=== PATIENT | male | born 1960 | race Caucasian/White ===

== ENCOUNTER 2017-04-07 11:44 | Emergency (ER) | payer BC ==
[2017-04-07 12:18] LABS: CHLORIDE,CL 106 mEq/L (98-106); SODIUM,NA 144 mEq/L (136-145)
[2017-04-07] MEDS ORDERED: Aspirin 81 MG Tab.Chew PO ONE (12:58)
[2017-04-07] MEDS ORDERED: atorvaSTATin 20 MG Tab PO ONE (13:07)
--- NOTE | 2017-04-07 13:19 | EDM.PDOC ---
ED HPI GENERAL MEDICAL PROBLEM - General Chief Complaint: Cardiovascular Problem Stated Complaint: CHEST PAIN Time Seen by Provider: 04/07/17 12:20 Source of Information: Reports: Patient, Family History Limitations: Reports: No Limitations - History of Present Illness INITIAL COMMENTS - FREE TEXT/NARRATIVE: Patient states he was working in his office his am and noted sharp chest pain around 1030 am-he states pain was sharp and located in the left nipple region radiating intohis left arm He states spontaneous resolution of the pain after about 3-5 mins and denies nausea, vomiting or diaphoresis. He indicates was frightening to him and he felt he needed to go to ER for evaluation. He drove to [place] approximately 40 miles and presented to the ER for evaluation with . He affirms HTN, Tobacco Use, Dyslipidemia in which he does not tolerate statin therapy,(does not like the way it makes him feel), Obesity. He denies pain or discomfort at this time. Onset: Today, Sudden Onset Date: 04/07/17 Onset Time: 10:00 Duration: Hour(s):, Resolved Prior to Arrival Location: Reports: Chest Quality: Reports: Sharp, Stabbing Severity: Moderate Improves with: Reports: Rest (Spontaneous) Worsens with: Reports: None Associated Symptoms: Reports: Weakness. Denies: Cough, cough w sputum, Diaphoresis, Fever/Chills, Headaches, Loss of Appetite, Malaise, Nausea/Vomiting , Shortness of Breath, Syncope - Related Data Allergies Allergy/AdvReac Type Severity Reaction Status Date / Time tramadol Allergy Lightheaded Verified 04/07/17 11:56 ness Home Meds: Home Meds Hydrocodone/Acetaminophen [[place] 5-325] 1 tab PO Q4H PRN 04/07/17 [History] Levothyroxine Sodium [Synthroid] 200 mcg PO ACBREAKFAST 04/07/17 [History] Metoprolol Succinate [Toprol XL] 100 mg PO BID 04/07/17 [History] amLODIPine [Norvasc] 10 mg PO DAILY 04/07/17 [History] Past Medical History HEENT History: Reports: None Cardiovascular History: Reports: Hypertension, Other (See Below) (Dyslipidemia does not tolerate statin-(feels weird)) Respiratory History: Reports: None Gastrointestinal History: Reports: GERD Genitourinary History: Reports: BPH, Prostate Disorder, Renal Calculus Endocrine/Metabolic History: Reports: Hypothyroidism, Obesity/BMI 30+ Hematologic History: Reports: None - Past Surgical History HEENT Surgical History: Reports: Adenoidectomy, Tonsillectomy GI Surgical History: Reports: Colonoscopy Male Surgical History: Reports: Renal Calculus, Other (See Below) (Prostate cystoscopy) Endocrine Surgical History: Reports: Thyroidectomy Neurological Surgical History: Reports: None Musculoskeletal Surgical History: Reports: None Oncologic Surgical History: Reports: None Dermatological Surgical History: Reports: None Social & Family History - Family History Family Medical History: Noncontributory HEENT: Reports: None Cardiac: Reports: Angina, High Cholesterol, Hypertension Respiratory: Reports: None GI: Reports: GERD - Tobacco Use Tobacco Use Within Last Twelve Months: Snuff/Dip - Tobacco Core Measures Smokeless Tobacco Use History: Chewing Tobacco - Caffeine Use Caffeine Use: Reports: Coffee (2 mugs daily) - Living Situation & Occupation Living situation: Reports: , with Spouse Occupation: Employed ED ROS GENERAL - Review of Systems Review Of Systems: See Below Constitutional: Reports: Weakness, Fatigue HEENT: Reports: No Symptoms Respiratory: Reports: No Symptoms Cardiovascular: Reports: Chest Pain, Blood Pressure Problem, Lightheadedness Endocrine: Reports: Fatigue GI/Abdominal: Reports: No Symptoms, Nausea : Reports: Other (Renal Calculi) Musculoskeletal: Reports: No Symptoms Skin: Reports: No Symptoms Neurological: Reports: No Symptoms Psychiatric: Reports: No Symptoms, Anxiety Hematologic/Lymphatic: Reports: No Symptoms Immunologic: Reports: No Symptoms ED EXAM, GENERAL - Physical Exam Exam: See Below Exam Limited By: No Limitations General Appearance: Alert, WD/WN, Anxious Eye Exam: Bilateral Eye: EOMI, Normal Fundi, Normal Inspection, PERRL Ear Exam: Bilateral Ear: Auricle Normal, Canal Normal Nose: Normal Inspection, Normal Mucosa, No Blood Throat/Mouth: Normal Inspection, Normal Lips, Normal Teeth, Normal Gums, Normal Oropharynx, Normal Voice, No Airway Compromise Head: Atraumatic, Normocephalic Neck: Normal Inspection, Supple, Non-Tender, Full Range of Motion. No: Carotid Bruit Respiratory/Chest: No Respiratory Distress, Lungs Clear, Normal Breath Sounds, No Accessory Muscle Use, Chest Non-Tender Cardiovascular: Normal Peripheral Pulses, Regular Rate, Rhythm, No Edema, No Gallop, No JVD, No Murmur, No Rub Peripheral Pulses: 2+: Carotid (L), Carotid (R), Brachial (L), Brachial (R), Radial (L), Radial (R) GI/Abdominal: Non-Tender (Male) Exam: Deferred Rectal (Males) Exam: Deferred Back Exam: Normal Inspection, Full Range of Motion Extremities: Normal Inspection, Normal Range of Motion, Non-Tender, No Pedal Edema, Normal Capillary Refill. No: Mitra's Sign Neurological: Alert, Oriented, CN II-XII Intact, Normal Cognition, Normal Gait, Normal Reflexes, No Motor/Sensory Deficits Psychiatric: Normal Affect, Normal Mood, Anxious Skin Exam: Warm, Dry, Intact, Normal Color, No Rash Lymphatic: No Adenopathy EKG INTERPRETATION EKG Date: 04/07/17 Rhythm: NSR (Prolonged QT) Course - Vital Signs Last Recorded V/S: Last Vital Signs Temp 36.8 C 04/07/17 12:13 Pulse 78 04/07/17 12:13 Resp 18 04/07/17 12:13 BP 182/98 H 04/07/17 12:13 Pulse Ox - Orders/Labs/Meds Orders: Active Orders 24 hr Category Date Time Status CXR [Chest 2V] [CR] Stat Exams 04/07/17 11:50 Taken HEPATIC FUNCTION PANEL,HFP [CHEM] Stat Lab 04/07/17 13:12 Ordered LIPID PANEL [CHEM] Stat Lab 04/07/17 13:10 Ordered EKG 12 Lead [EK] Routine Ther 04/07/17 11:49 Ordered Labs: Laboratory Tests 04/07/17 04/07/17 04/07/17 Range/Units 11:58 12:00 12:00 WBC 6.8 (5.0-10.0) 10^3/uL RBC 5.04 (4.50-6.00) 10^6/uL Hgb 15.2 (14.0-18.0) g/dL Hct 42.9 (40.0-54.0) % MCV 85.1 (82.0-94.0) fL MCH 30.2 (27.0-32.0) pg MCHC 35.4 (33.0-38.0) g/dL RDW Coeff of Elisabeth 14.1 (11.0-15.0) % Plt Count 187 (150-400) 10^3/uL Neut % (Auto) 59.4 (35-85) % Lymph % (Auto) 28.9 (10-55) % [place] % (Auto) 8.3 (0-16) % Eos % (Auto) 2.8 (0-5) % Baso % (Auto) 0.6 (0-3) % Neut # (Auto) 4.01 (1.80-7.00) 10^3/uL Lymph # (Auto) 1.95 (1.00-4.80) 10^3/uL [place] # (Auto) 0.56 (0.00-0.80) 10^3/uL Eos # (Auto) 0.19 (0.00-0.45) 10^3/uL Baso # (Auto) 0.04 10^3/uL PT 11.0 (9.7-12.3) SEC INR 1.02 (0.92-1.18) APTT 24.6 (24.5-30.9) SEC D-Dimer, Quantitative (0.00-0.50) Sodium 144 (136-145) mEq/L Potassium 3.6 (3.5-5.0) mEq/L Chloride 106 (98-106) mEq/L Carbon Dioxide 30 (21-32) mmol/L BUN 18 (7-18) mg/dL Creatinine 1.1 (0.7-1.3) mg/dL Est Cr Clr Drug Dosing TNP Estimated GFR (MDRD) > 60 (>=60) mL/min Glucose 111 H (75-99) mg/dL Hemoglobin A1c (4.8-6.2) % Calcium 9.1 (8.4-10.1) mg/dL Lactate Dehydrogenase 215 H (100-190) U/L Creatine Kinase 198 (35-232) U/L Troponin I 0.105 H (0.00-0.06) ng/mL TSH, Ultra Sensitive (0.36-5.60) uIU/mL 04/07/17 04/07/17 04/07/17 Range/Units 12:00 12:00 12:18 WBC (5.0-10.0) 10^3/uL RBC (4.50-6.00) 10^6/uL Hgb (14.0-18.0) g/dL Hct (40.0-54.0) % MCV (82.0-94.0) fL MCH (27.0-32.0) pg MCHC (33.0-38.0) g/dL RDW Coeff of Elisabeth (11.0-15.0) % Plt Count (150-400) 10^3/uL Neut % (Auto) (35-85) % Lymph % (Auto) (10-55) % [place] % (Auto) (0-16) % Eos % (Auto) (0-5) % Baso % (Auto) (0-3) % Neut # (Auto) (1.80-7.00) 10^3/uL Lymph # (Auto) (1.00-4.80) 10^3/uL [place] # (Auto) (0.00-0.80) 10^3/uL Eos # (Auto) (0.00-0.45) 10^3/uL Baso # (Auto) 10^3/uL PT (9.7-12.3) SEC INR (0.92-1.18) APTT (24.5-30.9) SEC D-Dimer, Quantitative < 0.19 (0.00-0.50) Sodium (136-145) mEq/L Potassium (3.5-5.0) mEq/L Chloride (98-106) mEq/L Carbon Dioxide (21-32) mmol/L BUN (7-18) mg/dL Creatinine (0.7-1.3) mg/dL Est Cr Clr Drug Dosing Estimated GFR (MDRD) (>=60) mL/min Glucose (75-99) mg/dL Hemoglobin A1c 5.4 (4.8-6.2) % Calcium (8.4-10.1) mg/dL Lactate Dehydrogenase (100-190) U/L Creatine Kinase (35-232) U/L Troponin I (0.00-0.06) ng/mL TSH, Ultra Sensitive 0.09 L (0.36-5.60) uIU/mL Meds: Medications Discontinued Medications Generic Name Dose Route Start Last Admin Trade Name Freq PRN Reason Stop Dose Admin Aspirin 324 mg 04/07/17 12:58 Aspirin PO 04/07/17 12:59 ONETIME ONE Atorvastatin Calcium 40 mg 04/07/17 13:07 Lipitor PO 04/07/17 13:08 ONETIME ONE Departure - Departure Time of Disposition: 13:33 Disposition: DC/Tfer to Acute Hospital 02 Reason for Transfer *Q: Primary PCI Indicated Condition: Good Clinical Impression: Acute myocardial infarction, Chest pain Instructions: Heart Attack, [id number] - Problem List & Annotations (1) Acute myocardial infarction SNOMED Code(s): 70322816 Code(s): I21.3 - ST ELEVATION (STEMI) MYOCARDIAL INFARCTION OF [facility] SITE Status: Acute Current Visit: Yes Qualifiers: Myocardial infarction ST status: non-ST elevation myocardial infarction Qualified Code(s): I21.4 - Non-ST elevation (NSTEMI) myocardial infarction (2) Chest pain SNOMED Code(s): 54555475 Code(s): R07.9 - CHEST PAIN, UNSPECIFIED Status: Acute Current Visit: Yes Qualifiers: Chest pain type: chest pain due to myocardial ischemia - Problem List Review Problem List Initiated/Reviewed/Updated: Yes - My Orders Last 24 Hours: My Active Orders 04/07/17 11:49 EKG 12 Lead [EK] Routine 04/07/17 11:50 CXR [Chest 2V] [CR] Stat 04/07/17 13:10 LIPID PANEL [CHEM] Stat 04/07/17 13:12 HEPATIC FUNCTION PANEL,HFP [CHEM] Stat - Assessment/Plan Last 24 Hours: My Active Orders 04/07/17 11:49 EKG 12 Lead [EK] Routine 04/07/17 11:50 CXR [Chest 2V] [CR] Stat 04/07/17 13:10 LIPID PANEL [CHEM] Stat 04/07/17 13:12 HEPATIC FUNCTION PANEL,HFP [CHEM] Stat Assessment:: Chest Pain AMI with elevated Troponin Risks and Benefits discussed with pt and family. Risks of transfer worsening of condition, cardiac . Benefits of transfer: Specialized care with cardiac care and intervention. Risks of non transfer no specialized care interventions at local facility, risk continues with , cardiac , and worsening of condition. [place] of nontransfer;Staying in familiar environment close to home. Patient and family verbalize understanding and are in agreement with plan and transfer. Plan: Transfer to Dr. Andersen/Luz at [facility]. All information with patient. Heparin drip initated with bolus. ASA Lipitor 40mg po.
[2017-04-07] MEDS ORDERED: Heparin Sodium 10,000 Units/1 ML MDV IV ONE (13:20)
[2017-04-07] MEDS ORDERED: Heparin Sodium/D5W 25,000 UNITS/500 ML BAG IV SCH (13:30)
[2017-04-07] MEDS ORDERED: Nitroglycerin 0.4 MG Tab.SL SL ONE (13:32)
[2017-04-07 13:34] VITALS: BP 160/91
== END 2017-04-07 13:40 ==
LOC: MERGE 11:44 → CC.ED 11:44
DX: I21.3 ST elevation (STEMI) myocardial infarction of unspecified site (principal); I10 Essential (primary) hypertension; E78.4 Other hyperlipidemia; K21.9 Gastro-esophageal reflux disease without esophagitis; E03.9 Hypothyroidism, unspecified; Z88.5 Allergy status to narcotic agent; Z79.899 Other long term (current) drug therapy; E66.9 Obesity, unspecified; Z90.89 Acquired absence of other organs; Z68.32 Body mass index [BMI] 32.0-32.9, adult
CPT/HCPCS: 36415; 71020; 80048; 80061; 80076; 81001; 82550; 83036; 83615; 84443; 84484; 85025; 85379; 85610; 85730; 96374; 96376; 99285; A9270; J1644; 93005

== ENCOUNTER → 2017-06-13 | Day surgery (SDC) | payer BC ==
[~2017-06-13] MED LIST: Propofol 200 MG/20 ML SDV IV ONE; Sodium Chloride 0.9% 500 ML IV SCH
[2017-06-13 13:18] VITALS: BP 122/72
--- NOTE | 2017-06-13 14:55 | OR ---
DATE OF OPERATION: 06/13/2017 PREOPERATIVE DIAGNOSIS: FAMILY HISTORY OF COLON CANCER. POSTOPERATIVE DIAGNOSIS: FAMILY HISTORY OF COLON CANCER. SURGEON: Merlin Echols MD PROCEDURE: FULL LENGTH COLONOSCOPY WITH POLYP REMOVAL X1. ANESTHESIA: [employer] DEVELOPMENT MANAGER due to severe anxiety. COMPLICATIONS: None. SPECIMEN: Hyperplastic polyp, splenic flexure. FINDINGS: 1. Full-length colonoscopy. 2. Minimal diverticulosis. 3. Hyperplastic polyp, splenic flexure. RECOMMENDATIONS: Followup colonoscopy in 5 years. INDICATIONS: The patient has a family history of colon cancer. He is due for a 5-year followup scope. PROCEDURE: THE PATIENT WAS PREPPED AND DRAPED, PLACED IN LEFT LATERAL DECUBITUS POSITION. A LUBRICATED OLYMPUS COLONOSCOPE WAS INSERTED AND EASILY ADVANCED TO THE CECUM. DIRECT VISUALIZATION OF THE ILEOCECAL VALVE WAS ACCOMPLISHED. BOWEL PREP WAS FINE. UPON WITHDRAWAL, THE CECUM, ASCENDING, AND TRANSVERSE COLON WERE BENIGN. THE PATIENT DID HAVE 1 SMALL HYPERPLASTIC POLYP, NEAR THE SPLENIC FLEXURE IN THE TRANSVERSE COLON SIDE AND WAS REMOVED IN ITS ENTIRETY WITH FORCEPS. RESOLUTION OF BLEEDING WAS SPONTANEOUS. THE DESCENDING COLON WAS UNREMARKABLE. SIGMOID COLON HAD MINIMAL DIVERTICULAR DISEASE. NO SIGNS OF ANY POLYPS, MASS, ULCERATION, OR BLEEDING SITES, NO VASCULAR ABNORMALITIES OR SIGNS OF COLITIS. THE RECTAL VAULT WAS UNREMARKABLE. RETROFLEXION OF SCOPE WITHIN THE RECTUM SHOWED NO ANAL LESIONS. AIR WAS THEN SUCTIONED. SCOPE WAS REMOVED WITHOUT COMPLICATION. KERRY/JEET /[id number]
== END ==
LOC: CC.SDS 11:08
PROVIDERS: ATTEND Family Medicine
DX: Z12.11 Encounter for screening for malignant neoplasm of colon (principal); D12.3 Benign neoplasm of transverse colon; K57.30 Diverticulosis of large intestine without perforation or abscess without bleeding; F41.9 Anxiety disorder, unspecified; N40.0 Benign prostatic hyperplasia without lower urinary tract symptoms; I10 Essential (primary) hypertension; E78.5 Hyperlipidemia, unspecified; E87.6 Hypokalemia; E03.9 Hypothyroidism, unspecified; E55.9 Vitamin D deficiency, unspecified; Z80.0 Family history of malignant neoplasm of digestive organs; Z88.8 Allergy status to other drugs, medicaments and biological substances; Z91.09 Other allergy status, other than to drugs and biological substances; Z79.899 Other long term (current) drug therapy; Z90.49 Acquired absence of other specified parts of digestive tract; Z98.52 Vasectomy status; Z72.0 Tobacco use
CPT/HCPCS: 45380; J2704; J7040

== ENCOUNTER 2017-09-13 15:55 | Emergency (ER) | payer BC ==
[2017-09-13] MEDS: Lidocaine 1% 20 ML MDV INJECT ONE (16:12)
[2017-09-13] MEDS: Bacitracin/Neomycin/Polymyxin B Oint 0.9 GM U/D Packet TOP ONE (16:28)
[2017-09-13] MEDS: Diphtheria,Pertussis(Acell),Tetanus Vaccine 0.5 ML Syringe IM ONE (16:28)
[2017-09-13 16:42] VITALS: BP 170/110
--- NOTE | 2017-09-13 16:47 | EDM.PDOC ---
ED HPI GENERAL MEDICAL PROBLEM - General Chief Complaint: Laceration Stated Complaint: laceration Time Seen by Provider: 09/13/17 16:00 Source of Information: Reports: Patient History Limitations: Reports: No Limitations - History of Present Illness INITIAL COMMENTS - FREE TEXT/NARRATIVE: Enrique is a 56 year old male who presents to the ED with complaints of a laceration to his left middle knuckle. He reports he was working on his ice auger and tried to grab it as it slipped, cutting his hand on the blade. Denies any numbness or tingling. He is able to move his finger without difficulty. Cap refill < 2 seconds. Bleeding is controlled with pressure. Denies any other injuries or concerns. Onset: Today, Sudden Onset Date: 09/13/17 Onset Time: 15:30 Location: Reports: Upper Extremity, Left Left Hand Pain Score (Numeric/FACES): 2 - Related Data Allergies Allergy/AdvReac Type Severity Reaction Status Date / Time adhesive tape Allergy Rash Verified 09/13/17 16:06 tramadol Allergy Lightheaded Verified 09/13/17 16:06 ness Home Meds: Home Meds Levothyroxine Sodium [Synthroid] 200 mcg PO ACBREAKFAST 04/07/17 [History] Metoprolol Succinate [Toprol XL] 100 mg PO BID 04/07/17 [History] amLODIPine [Norvasc] 10 mg PO DAILY 04/07/17 [History] ALPRAZolam [ALPRAZolam ODT] 1 tab PO TID 06/09/17 [History] Cyclobenzaprine HCl [Cyclobenzaprine HCl] 1 tab PO TID PRN 06/09/17 [History] Fish Oil/[place]-3 Fatty Acids [Fish Oil 1,000 MG] 1 cap PO DAILY 06/09/17 [ History] Lisinopril 1 tab PO BID 06/09/17 [History] Magnesium 1 tab PO DAILY 06/09/17 [History] Potassium Chloride 3 tab PO BID 06/09/17 [History] Red Yeast Rice 1 tab PO BID 06/09/17 [History] Triamterene/Hydrochlorothiazid [Triamterene-HCTZ 37.5-25 MG] 1 cap PO DAILY [History] Vitamin B Complex 1 cap PO DAILY 06/09/17 [History] hydrALAZINE [Apresoline] 1 tab PO BID 06/09/17 [History] Past Medical History HEENT History: Reports: None Cardiovascular History: Reports: Hypertension, Other (See Below) (Dyslipidemia does not tolerate statin-(feels weird)) Respiratory History: Reports: None Gastrointestinal History: Reports: GERD Genitourinary History: Reports: BPH, Prostate Disorder, Renal Calculus Endocrine/Metabolic History: Reports: Hypothyroidism, Obesity/BMI 30+ Hematologic History: Reports: None - Past Surgical History Male Surgical History: Reports: Other (See Below), Renal Calculus Social & Family History - Family History Family Medical History: Noncontributory HEENT: Reports: None Cardiac: Reports: Angina, High Cholesterol, Hypertension Respiratory: Reports: None GI: Reports: GERD - Caffeine Use Caffeine Use: Reports: Coffee (2 mugs daily) - Living Situation & Occupation Living situation: Reports: , with Spouse Occupation: Employed ED ROS GENERAL - Review of Systems Review Of Systems: ROS reveals no pertinent complaints other than HPI. ED EXAM, SKIN/RASH Exam: See Below Exam Limited By: No Limitations General Appearance: Alert, WD/WN, No Apparent Distress Head: Atraumatic, Normocephalic Neck: Normal Inspection, Supple, Non-Tender, Full Range of Motion Respiratory/Chest: No Respiratory Distress, Lungs Clear, Normal Breath Sounds, No Accessory Muscle Use, Chest Non-Tender Cardiovascular: Normal Peripheral Pulses, Regular Rate, Rhythm, No Edema, No Gallop, No JVD, No Murmur, No Rub Peripheral Pulses: 2+: Radial (L) Extremities: Normal Inspection, Normal Range of Motion, Non-Tender, No Pedal Edema, Normal Capillary Refill Skin: Other (laceration to left 3rd knuckle, 2.5 cm in length, some subcutaneous involvement) Location, Skin: Upper Extremity, Left Associated features: Tenderness, Swelling. No: Warmth ED SKIN PROCEDURES - Laceration/Wound Repair Left Anterior Proximal Other Lac/Wound length In cm: 2.5 Appearance: Subcutaneous, Clean Distal NVT: Neuro & Vascular Intact Anesthetic Type: Local Local Anesthesia - Lidocaine (Xylocaine): 1% Plain Local Anesthetic Volume: 3cc Skin Prep: Chlorhexidine (Hibiciens) Closed with: Sutures Suture Size: other (5-0) # of Sutures: 7 Suture Type: Nylon Course - Vital Signs Last Recorded V/S: Last Vital Signs Temp 97.7 F 09/13/17 16:03 Pulse 73 09/13/17 16:03 Resp 18 09/13/17 16:03 BP 170/110 H 09/13/17 16:03 Pulse Ox 98 09/13/17 16:03 - Orders/Labs/Meds Orders: Active Orders 24 hr Category Date Time Status Vaccines to be Administered [RC] PER UNIT ROUTINE Care 09/13/17 16:23 Active Meds: Medications Discontinued Medications Generic Name Dose Route Start Last Admin Trade Name Jann PRN Reason Stop Dose Admin Diphtheria/Tetanus/Acell Pertussis 0.5 ml 09/13/17 16:23 09/13/17 16:28 Adacel IM 09/13/17 16:24 0.5 ml .ONCE ONE Administration Lidocaine HCl 20 ml 09/13/17 16:09 09/13/17 16:12 Xylocaine 1% INJECT 09/13/17 16:10 20 ml ONETIME ONE Administration Neomycin/Polymyxin/Bacitracin 1 each 09/13/17 16:21 09/13/17 16:28 Triple Antibiotic Oint TOP 09/13/17 16:22 1 each ONETIME ONE Administration Departure - Departure Time of Disposition: 16:42 Disposition: Home, Self-Care 01 Condition: Good Clinical Impression: Laceration of hand, left Qualifiers: Encounter type: initial encounter Foreign body presence: without foreign body Qualified Code(s): S61.412A - Laceration without foreign body of left hand, initial encounter - Discharge Information Instructions: Laceration Care, Adult, [id number], Stitches, [place], or Adhesive Wound Closure, [id number] Forms: ED Department Discharge Additional Instructions: Follow up on 09/19/2017 for suture removal prior to leaving for vacation Keep affected hand clean and dry. Keep covered for 24 hours. Cover with bandaid if working in dirty conditions Okay to shower and let water run off. Do not soak hand in water May use triple antibiotic ointment as needed. Tylenol or ibuprofen as needed for pain Return to clinic if any redness, swelling, fever, or purulent drainage from affected area - My Orders Last 24 Hours: My Active Orders 09/13/17 16:23 Vaccines to be Administered [RC] PER UNIT ROUTINE - Assessment/Plan Last 24 Hours: My Active Orders 09/13/17 16:23 Vaccines to be Administered [RC] PER UNIT ROUTINE
== END 2017-09-13 17:00 | disposition home or self-care (01) ==
LOC: CC.ED 15:55
DX: S61.412A Laceration without foreign body of left hand, initial encounter (principal); I10 Essential (primary) hypertension; K21.9 Gastro-esophageal reflux disease without esophagitis; Z88.5 Allergy status to narcotic agent; Z79.899 Other long term (current) drug therapy; Z23 Encounter for immunization; Z87.442 Personal history of urinary calculi; E03.9 Hypothyroidism, unspecified; E66.9 Obesity, unspecified
CPT/HCPCS: 12001; 90471; 90715; 99283

== ENCOUNTER 2018-03-31 23:20 | Observation (INO) | payer BC ==
[2018-04-01 00:15] LABS: CHLORIDE,CL 107 mEq/L (98-106); SODIUM,NA 144 mEq/L (136-145)
--- NOTE | 2018-04-01 00:53 | EDM.PDOC ---
ED HPI GENERAL MEDICAL PROBLEM - General Chief Complaint: Cardiovascular Problem Stated Complaint: "heart racing" Time Seen by Provider: 04/01/18 00:08 Source of Information: Reports: Patient, Family () History Limitations: Reports: No Limitations - History of Present Illness INITIAL COMMENTS - FREE TEXT/NARRATIVE: Enrique is a 57 yo male who presents to the ER via private vehicle with complaints of his heart racing. He states symptoms started around 5:00pm this evening while at work. He admits his checked his blood pressure and pulse at home on 3 occasions this evening and every time his pulse was in the low 100s and BP was elevated. He denies any chest pain or shortness of breath. States he just had labs done for his doctor in [place] in regards to his thyroid. He states he has otherwise been feeling well. Has been having some difficulty with spikes in his blood pressure and is currently being treated by Barbara De La Torre NP. He recently had his Cardura increased to 8mg from 4mg as well. Onset: Today Onset Date: 04/01/18 Onset Time: 17:00 Duration: Constant Location: Reports: Chest Associated Symptoms: Reports: No Other Symptoms - Related Data Allergies Allergy/AdvReac Type Severity Reaction Status Date / Time adhesive tape Allergy Rash Verified 03/31/18 23:47 tramadol Allergy Lightheaded Verified 03/31/18 23:47 ness Home Meds: Home Meds Levothyroxine Sodium [Synthroid] 175 mcg PO ACBREAKFAST 04/07/17 [History] Metoprolol Succinate [Toprol XL] 100 mg PO QAM 04/07/17 [History] amLODIPine [Norvasc] 10 mg PO DAILY 04/07/17 [History] ALPRAZolam [ALPRAZolam ODT] 1 tab PO TID PRN 06/09/17 [History] Cyclobenzaprine HCl 1 tab PO TID PRN 06/09/17 [History] Fish Oil/[place]-3 Fatty Acids [Fish Oil 1,000 MG] 1 cap PO DAILY 06/09/17 [ History] Lisinopril 40 mg PO QAM 06/09/17 [History] Magnesium 1 tab PO DAILY 06/09/17 [History] Potassium Chloride 3 tab PO BID 06/09/17 [History] Red Yeast Rice 1 tab PO BID 06/09/17 [History] Triamterene/Hydrochlorothiazid [Triamterene-HCTZ 37.5-25 MG] 1 cap PO DAILY [History] Vitamin B Complex 1 cap PO DAILY 06/09/17 [History] Aspirin [Low Dose Aspirin EC] 81 mg PO DAILY 02/13/18 [History] Doxazosin [Cardura] 8 mg PO BID 02/13/18 [History] Cholecalciferol (Vitamin D3) [Vitamin D3] 4,000 unit PO DAILY 03/31/18 [History] Past Medical History HEENT History: Reports: Other (See Below) Other HEENT History: deviated septum Cardiovascular History: Reports: Hypertension Respiratory History: Reports: Sleep Apnea Gastrointestinal History: Reports: GERD, PUD Genitourinary History: Reports: BPH, Prostate Disorder, Renal Calculus Other Genitourinary History: enlarged prostate, history of kidney stones Musculoskeletal History: Reports: Fracture Neurological History: Reports: TIA Psychiatric History: Reports: Anxiety Endocrine/Metabolic History: Reports: Hypothyroidism, Obesity/BMI 30+ Hematologic History: Reports: None Immunologic History: Reports: None Oncologic (Cancer) History: Reports: Thyroid Dermatologic History: Reports: None - Infectious Disease History Infectious Disease History: Reports: Chicken Pox - Past Surgical History Head Surgeries/Procedures: Reports: None Cardiovascular Surgical History: Reports: Other (See Below) Other Cardiovascular Surgeries/Procedures: angiograms Respiratory Surgical History: Reports: None GI Surgical History: Reports: Appendectomy, Colonoscopy, EGD, Hernia, Inguinal, Polypectomy Male Surgical History: Reports: Kidney Stone Extraction, Lithotripsy (ESWL), Renal Calculus, TURP-Transurethral Resection of Prostate, Ureteral Stent Endocrine Surgical History: Reports: Thyroidectomy Neurological Surgical History: Reports: None Musculoskeletal Surgical History: Reports: None Oncologic Surgical History: Reports: None Dermatological Surgical History: Reports: Skin Biopsy Social & Family History - Family History Family Medical History: Noncontributory HEENT: Reports: None Cardiac: Reports: Angina, High Cholesterol, Hypertension Respiratory: Reports: None GI: Reports: GERD - Tobacco Use Smoking Status *Q: Never Smoker - Caffeine Use Caffeine Use: Reports: Coffee (2 mugs daily) - Living Situation & Occupation Living situation: Reports: , with Spouse Occupation: Employed ED ROS GENERAL - Review of Systems Review Of Systems: See Below Constitutional: Denies: Fever, Chills, Decreased Appetite HEENT: Reports: No Symptoms Respiratory: Reports: No Symptoms. Denies: Shortness of Breath Cardiovascular: Reports: Blood Pressure Problem, Palpitations. Denies: Chest Pain, Dyspnea on Exertion, Lightheadedness, Syncope GI/Abdominal: Reports: No Symptoms. Denies: Abdominal Pain, Constipation, Diarrhea, Nausea, Vomiting : Reports: No Symptoms. Denies: Dysuria, Frequency Musculoskeletal: Reports: No Symptoms Skin: Reports: No Symptoms Neurological: Reports: No Symptoms Psychiatric: Reports: No Symptoms ED EXAM, GENERAL - Physical Exam Exam: See Below Exam Limited By: No Limitations General Appearance: Alert, No Apparent Distress Eye Exam: Bilateral Eye: Normal Inspection Ears: Normal External Exam, Normal Canal, Hearing Grossly Normal, Normal TMs Nose: Normal Inspection, Normal Mucosa, No Blood Throat/Mouth: Normal Inspection, Normal Lips, Normal Oropharynx, Normal Voice, No Airway Compromise Head: Atraumatic, Normocephalic Neck: Normal Inspection, Supple Respiratory/Chest: No Respiratory Distress, Lungs Clear, Normal Breath Sounds, No Accessory Muscle Use Cardiovascular: Normal Peripheral Pulses, No Murmur, Tachycardia. No: Diastolic Murmur, Systolic Murmur, Irregularly Irregular Peripheral Pulses: 4+: Posterior Tibial (L), Posterior Tibial (R), Dorsalis Pedis (L), Dorsalis Pedis (R) GI/Abdominal: Normal Bowel Sounds, Soft, Non-Tender, No Abnormal Bruit, No Mass Extremities: Normal Inspection, No Pedal Edema Neurological: Alert, Oriented, Normal Cognition, No Motor/Sensory Deficits Psychiatric: Normal Affect, Normal Mood Skin Exam: Warm, Dry, Intact, Normal Color, No Rash. No: Diaphoretic EKG INTERPRETATION EKG Date: 04/01/18 Rhythm: NSR Rate (Beats/Min): 92 [place]: Normal P-Wave: Present QRS: Normal ST-T: Normal QT: Normal Course - Vital Signs Last Recorded V/S: Last Vital Signs Temp 97.6 F 04/01/18 00:00 Pulse 87 04/01/18 00:22 Resp 20 04/01/18 00:00 BP 168/97 H 04/01/18 00:22 Pulse Ox 97 04/01/18 00:00 - Orders/Labs/Meds Orders: Active Orders 24 hr Category Date Time Status Patient Status Manage Transfer [TRANSFER] Routine ADT 04/01/18 00:39 Ordered EKG Documentation Completion [RC] STAT Care 03/31/18 23:30 Active Resuscitation Status Routine Resus Stat 04/01/18 00:40 Ordered Labs: Laboratory Tests 03/31/18 03/31/18 03/31/18 Range/Units 23:41 23:41 23:41 WBC 5.8 (5.0-10.0) 10^3/uL RBC 4.58 (4.50-6.00) 10^6/uL Hgb 13.6 L (14.0-18.0) g/dL Hct 38.8 L (40.0-54.0) % MCV 84.7 (82.0-94.0) fL MCH 29.7 (27.0-32.0) pg MCHC 35.1 (33.0-38.0) g/dL RDW Coeff of Elisabeth 13.6 (11.0-15.0) % Plt Count 167 (150-400) 10^3/uL Neut % (Auto) 51.0 (35-85) % Lymph % (Auto) 36.4 (10-55) % Harper % (Auto) 8.1 (0-16) % Eos % (Auto) 4.0 (0-5) % Baso % (Auto) 0.5 (0-3) % Neut # (Auto) 2.95 (1.80-7.00) 10^3/uL Lymph # (Auto) 2.11 (1.00-4.80) 10^3/uL Harper # (Auto) 0.47 (0.00-0.80) 10^3/uL Eos # (Auto) 0.23 (0.00-0.45) 10^3/uL Baso # (Auto) 0.03 10^3/uL PT 10.6 (9.7-12.3) SEC INR 1.02 (0.92-1.18) APTT 25.7 (23.2-32.3) SEC Sodium 144 (136-145) mEq/L Potassium 2.8 L* (3.5-5.0) mEq/L Chloride 107 H (98-106) mEq/L Carbon Dioxide 31 (21-32) mmol/L BUN 21 H (7-18) mg/dL Creatinine 1.2 (0.7-1.3) mg/dL Est Cr Clr Drug Dosing 73.21 mL/min Estimated GFR (MDRD) > 60 (>=60) mL/min Glucose 134 H D (75-99) mg/dL Calcium 8.3 L (8.4-10.1) mg/dL Magnesium 2.2 (1.8-2.4) mg/dL Lactate Dehydrogenase 164 (100-190) U/L Creatine Kinase 283 H (35-232) U/L Troponin I 0.077 H (0.00-0.06) ng/mL Departure - Departure Time of Disposition: 00:55 Disposition: Refer to Observation Clinical Impression: Hypokalemia, Heart palpitations - Problem List & Annotations (1) Heart palpitations SNOMED Code(s): 33795095 Code(s): R00.2 - PALPITATIONS Status: Acute Current Visit: Yes (2) Hypokalemia SNOMED Code(s): 21417065 Code(s): E87.6 - HYPOKALEMIA Status: Chronic Priority: Low Current Visit: Yes - My Orders Last 24 Hours: My Active Orders 03/31/18 23:30 EKG Documentation Completion [RC] STAT 04/01/18 00:39 Patient Status Manage Transfer [TRANSFER] Routine 04/01/18 00:40 Resuscitation Status Routine - Assessment/Plan Admission H&P: Please use this note as an admission H&P Last 24 Hours: My Active Orders 03/31/18 23:30 EKG Documentation Completion [RC] STAT 04/01/18 00:39 Patient Status Manage Transfer [TRANSFER] Routine 04/01/18 00:40 Resuscitation Status Routine Plan: Enrique's pulse came down to high 80's to low 90's while on continuous telemetry in the ER. BP improved as well with last blood pressure being 160/90. Enrique was asymptomatic. Laboratory work showed indeterminate troponin. After reviewing prior troponin test performed in the last year, it appears to be consistent with previous. Will repeat in am to rule out any cardiac etiology. Potassium was low with known hypokalemia in the past. Recent potassium lab done yesterday was 3.2. He is currently taking 30mEq twice a day. Will admit for observation for cardiac rule out and potassium supplementation with monitoring of blood pressure and pulse as well. Enrique verbalized understanding and he was transferred to the floor in satisfactory condition.
[2018-04-01] MEDS ORDERED: ALPRAZOLAM PO PRN (00:54)
[2018-04-01] MEDS ORDERED: Acetaminophen 325 MG Tab PO PRN (00:54)
[2018-04-01] MEDS ORDERED: NS + KCl 20mEq/L 1,000 ML IV SCH (00:54)
[2018-04-01] MEDS ORDERED: Enoxaparin 40 MG/0.4 ML Syringe SUBCUT SCH (01:30)
[2018-04-01] MEDS ORDERED: LEVOTHYROXINE 175 MCG PO SCH (07:00)
[2018-04-01] MEDS ORDERED: Aspirin 81 MG Tab.EC PO SCH (08:00)
[2018-04-01] MEDS ORDERED: TRIAMTERENE PO SCH (08:00)
[2018-04-01] MEDS ORDERED: POTASSIUM CHLORIDE PO SCH (08:00)
[2018-04-01] MEDS ORDERED: amLODIPine 10 MG Tab**PT OWN PO SCH (08:00)
[2018-04-01] MEDS ORDERED: Metoprolol Succinate 100 MG Tab.ER PO SCH (08:00)
[2018-04-01] MEDS ORDERED: MAGNESIUM PO SCH (08:00)
[2018-04-01] MEDS ORDERED: HYDROCHLOROTHIAZIDE PO SCH (08:00)
[2018-04-01] MEDS ORDERED: DOXAZOSIN 8 MG PO SCH (08:00)
[2018-04-01 08:04] LABS: CHLORIDE,CL 108 mEq/L (98-106); SODIUM,NA 145 mEq/L (136-145)
[2018-04-01 08:18] VITALS: BP 152/91
[2018-04-01] MEDS ORDERED: Lisinopril 20 MG Tab PO SCH (09:00)
--- NOTE | 2018-04-01 12:20 | DISCH ---
ADMISSION DIAGNOSES: 1. Heart palpitations. 2. Hypokalemia. 3. Cardiac rule out. 4. Essential hypertension. DISCHARGE DIAGNOSIS: 1. ESSENTIAL HYPERTENSION. 2. HYPOKALEMIA. ATTENDING PHYSICIAN: Merlin Echols MD. HISTORY OF PRESENT ILLNESS: Enrique is a 57-year-old male, who presented to the emergency room yesterday evening with concerns of heart palpitations. He was at work around 5 o'clock and that is when he started to feel heart palpitations. He states that those palpitations did not resolve throughout the evening. He did go home, tried laying down to take alprazolam as well that he does have as needed. He is currently on five other blood pressure medicines. His blood pressures have been elevated with it as well. About midnight, he elected to come into the ER. During his visit in the emergency room, it was noted that he did have a potassium of 2.8. Heart palpitations did subside. No further hypertensive medications were needed. Troponin was indeterminate. We did elect to admit him observation through the night on telemetry and closely monitor. Repeat potassium in the morning. HOSPITAL STAY: Enrique had an uneventful hospital stay. He states he slept quite well. Denies any palpitations throughout the night. Denies any chest pain, discomfort, or shortness of breath. He is requesting to go home at this point in time. He has not had his morning medicines as of yet. PHYSICAL EXAMINATION: VITAL SIGNS: Blood pressure 152/91, with O2 saturation 93%, respiratory rate of 16, pulse 67, and temp 97.2. GENERAL: Pleasant and cooperative male. He appears to be sitting comfortably on the hospital bed. Does not appear to be in any distress whatsoever. Have normal conversation. HEENT: Grossly unremarkable. LUNGS: Clear to auscultation. I did not hear any adventitious sounds. CARDIAC: Regular rate and rhythm. No murmurs are noted. Pedal pulses were present and equal bilaterally. No pedal edema is noted. LABORATORY DATA: Potassium is at 3.0 from 2.8 yesterday evening. Troponin is stable at 0.073. Again, as reviewed back his last few visits that troponin has been drawn, it has been consistent. Urinalysis was negative. TSH was 0.38, with a free T4 of 1.1 this morning. DISCHARGE MEDICATIONS: We will resume all home medications. However, there will be changes to his metoprolol. We will increase it to 150 mg daily of the extended release. We will increase his potassium chloride from 30 mEq twice a day to 40 mEq twice a day. His triamterene/hydrochlorothiazide, we will hold at this point in time. Otherwise, we will resume all home medications. DISCHARGE INSTRUCTIONS: Strongly encourage a low-sodium diet. Activity as tolerated. He is to do daily log book of his blood pressures to continue with this for reference at followup appointment. FOLLOWUP APPOINTMENTS: Will follow up with Barbara De La Torre NP on Friday with repeat basic metabolic panel in the morning prior to his visit. EMBER/JEET /[id number]
== END 2018-04-01 10:22 | disposition home or self-care (01) ==
LOC: CC.ED 23:20 → CC.MS 04-01 00:40 → UNDOADMOB 04-01 00:42
PROVIDERS: ADMIT Physician Assistant Medical; ATTEND Family Medicine
DX: I10 Essential (primary) hypertension (principal); E87.6 Hypokalemia; E66.9 Obesity, unspecified; Z68.34 Body mass index [BMI] 34.0-34.9, adult; Z79.899 Other long term (current) drug therapy
CPT/HCPCS: 36415; 80048; 81001; 82550; 83615; 83735; 84439; 84443; 84484; 85025; 85610; 85730; 93005; 96372; 99285; G0378; J1650; J3480

== ENCOUNTER 2021-05-26 08:52 | Emergency (ER) | payer BC ==
[2021-05-26 09:03] VITALS: BP 150/84; PULSE 77
[2021-05-26] MEDS ORDERED: Lidocaine 1% 30 ML SDV INJECT ONE (09:03)
[2021-05-26] MEDS ORDERED: Bacitracin/Neomycin/Polymyxin B Oint 0.9 GM U/D Packet TOP ONE (09:18)
--- NOTE | 2021-05-26 09:28 | EDM.PDOC ---
ED HPI GENERAL MEDICAL PROBLEM - General Chief Complaint: Laceration Stated Complaint: laceration Time Seen by Provider: 05/26/21 09:10 Source of Information: Reports: Patient History Limitations: Reports: No Limitations - History of Present Illness INITIAL COMMENTS - FREE TEXT/NARRATIVE: 3 cm laceration between the webbing of the thumb and the index finger. It is clean and straight. Minimal amount of bleeding noted. Has good movement of the two digits. 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) Left Hand Pain Score (Numeric/FACES): 3 - Related Data Allergies Allergy/AdvReac Type Severity Reaction Status Date / Time adhesive tape Allergy Rash Verified 05/26/21 09:04 tramadol Allergy Lightheaded Verified 05/26/21 09:04 ness Home Meds: Home Meds Levothyroxine Sodium [Synthroid] 175 mcg PO ACBREAKFAST 04/07/17 [History] amLODIPine [Norvasc] 10 mg PO DAILY 04/07/17 [History] ALPRAZolam [ALPRAZolam ODT] 1 tab PO TID PRN 06/09/17 [History] Cyclobenzaprine HCl 1 tab PO TID PRN 06/09/17 [History] Fish Oil/[place]-3 Fatty Acids [Fish Oil 1,000 MG] 1 cap PO DAILY 06/09/17 [History] Lisinopril 40 mg PO QAM 06/09/17 [History] Magnesium 1 tab PO DAILY 06/09/17 [History] Red Yeast Rice 1 tab PO BID 06/09/17 [History] Vitamin B Complex 1 cap PO DAILY 06/09/17 [History] Aspirin [Low Dose Aspirin EC] 81 mg PO DAILY 02/13/18 [History] Doxazosin [Cardura] 8 mg PO BID 02/13/18 [History] Cholecalciferol (Vitamin D3) [Vitamin D3] 4,000 unit PO DAILY 03/31/18 [History] Metoprolol Succinate [Toprol XL 100mg] 150 mg PO QAM #45 tab.er 04/01/18 [Rx] Potassium Chloride 4 tab PO BID #0 04/01/18 [Rx] atorvaSTATin Calcium [Atorvastatin Calcium] 10 mg PO DAILY 08/13/18 [History] cloNIDine HCL [Catapres] 0.2 mg PO TID 08/13/18 [History] valACYclovir [Valtrex] 1,000 mg PO BID PRN 05/26/21 [History] Past Medical History HEENT History: Reports: Other (See Below) Other HEENT History: deviated septum Cardiovascular History: Reports: Hypertension Respiratory History: Reports: Sleep Apnea Gastrointestinal History: Reports: GERD, PUD Genitourinary History: Reports: BPH, Prostate Disorder, Renal Calculus Other Genitourinary History: enlarged prostate, history of kidney stones Musculoskeletal History: Reports: Fracture Neurological History: Reports: TIA Psychiatric History: Reports: Anxiety Endocrine/Metabolic History: Reports: Hypothyroidism, Obesity/BMI 30+ Hematologic History: Reports: None Immunologic History: Reports: None Oncologic (Cancer) History: Reports: Thyroid Dermatologic History: Reports: None - Infectious Disease History Infectious Disease History: Reports: Chicken Pox - Past Surgical History Head Surgeries/Procedures: Reports: None Cardiovascular Surgical History: Reports: Other (See Below) Other Cardiovascular Surgeries/Procedures: angiograms Respiratory Surgical History: Reports: None GI Surgical History: Reports: Appendectomy, Colonoscopy, EGD, Hernia, Inguinal, Polypectomy Male Surgical History: Reports: Kidney Stone Extraction, Lithotripsy (ESWL), Renal Calculus, TURP-Transurethral Resection of Prostate, Ureteral Stent Endocrine Surgical History: Reports: Thyroidectomy Neurological Surgical History: Reports: None Musculoskeletal Surgical History: Reports: None Oncologic Surgical History: Reports: None Dermatological Surgical History: Reports: Skin Biopsy Social & Family History - Family History Family Medical History: No Pertinent Family History HEENT: Reports: None Cardiac: Reports: Angina, High Cholesterol, Hypertension Respiratory: Reports: None GI: Reports: GERD - Caffeine Use Caffeine Use: Reports: Coffee (2 mugs daily) - Living Situation & Occupation Living situation: Reports: , with Spouse Occupation: Employed ED ROS GENERAL - Review of Systems Review Of Systems: See Below Constitutional: Reports: No Symptoms Skin: Reports: Wound ED EXAM, SKIN/RASH Exam: See Below Exam Limited By: No Limitations General Appearance: Alert, WD/WN, No Apparent Distress Location, Skin: Upper Extremity, Left, Other (between the 1st and second digits.) ED SKIN PROCEDURES - Laceration/Wound Repair Left Hand Appearance: Superficial Distal NVT: Neuro & Vascular Intact, No Tendon Injury Anesthetic Type: Local Local Anesthesia - Lidocaine (Xylocaine): 1% Plain Local Anesthetic Volume: 3cc Skin Prep: Other (sure clens) Exploration/Debridement/Repair: Wound Explored Closed with: Sutures Lac/Wound length In cm: 3 Suture Size: 4-0 # of Sutures: 6 Suture Type: Nylon, Interrupted Sterile Dressing Applied: Nurse Tetanus Status Addressed: Yes Complications: No Course - Vital Signs Last Recorded V/S: Last Vital Signs Temp 98.4 F 05/26/21 08:56 Pulse 77 05/26/21 08:56 Resp 16 05/26/21 08:56 BP 150/84 H 05/26/21 08:56 Pulse Ox 95 05/26/21 08:56 - Orders/Labs/Meds Meds: Medications Discontinued Medications Generic Name Dose Route Start Last Admin Trade Name Jann PRN Reason Stop Dose Admin Lidocaine HCl 30 ml 05/26/21 09:03 05/26/21 09:15 Lidocaine 1% 30 Ml Sdv INJECT 05/26/21 09:04 5 ml ONETIME ONE Administration Neomycin/Polymyxin/Bacitracin 1 each 05/26/21 09:18 Bacitracin/Neomycin/Polymyxin B Oint 0.9 Gm U/D Packet TOP 05/26/21 09:19 ONETIME ONE Departure - Departure Time of Disposition: 09:25 Disposition: Home, Self-Care 01 Condition: Good Clinical Impression: Laceration - Discharge Information *PRESCRIPTION DRUG MONITORING PROGRAM REVIEWED*: Not Applicable *COPY OF PRESCRIPTION DRUG MONITORING REPORT IN PATIENT MATTEO: Not Applicable Instructions: Laceration Care, Adult Referrals: PCP,None [Primary Care Provider] - Forms: ED Department Discharge Additional Instructions: keep clean and dry can shower but don't soak sutures out in about 10 days change dressing with topical antibiotic and dressing Sepsis Event Note (ED) - Evaluation Sepsis Screening Result: No Definite Risk - Focused Exam Vital Signs: Vital Signs Temp Pulse Resp BP Pulse Ox 05/26/21 08:56 98.4 F 77 16 150/84 H 95 - Problem List & Annotations (1) Laceration SNOMED Code(s): 179529128 Code(s): VMQ5580 - Status: Acute Priority: High Current Visit: Yes - Problem List Review Problem List Initiated/Reviewed/Updated: Yes
== END 2021-05-26 09:40 | disposition home or self-care (01) ==
LOC: CC.ED 08:52
DX: S61.412A Laceration without foreign body of left hand, initial encounter (principal); I10 Essential (primary) hypertension; E03.9 Hypothyroidism, unspecified; E66.9 Obesity, unspecified; Z68.35 Body mass index [BMI] 35.0-35.9, adult; Z91.048 Other nonmedicinal substance allergy status; Z88.5 Allergy status to narcotic agent; Z79.82 Long term (current) use of aspirin; Z79.899 Other long term (current) drug therapy; W26.0XXA Contact with knife, initial encounter
CPT/HCPCS: 12002; 99282-25

== ENCOUNTER → 2022-07-12 | Day surgery (SDC) | payer BC ==
[~2022-07-12] MED LIST changes: +Ketamine 200 MG/20 ML MDV ONE; +Lactated Ringers 1,000 ML IV SCH; +Midazolam 1 MG/ML 2 ML SDV ONE; -Propofol 200 MG/20 ML SDV IV ONE; +Propofol 200 MG/20 ML SDV ONE; -Sodium Chloride 0.9% 500 ML IV SCH; +fentaNYL 50 MCG/ML SDV ONE
[2022-07-12 12:04] VITALS: BP 129/74; PULSE 55
== END ==
LOC: CC.SDS 09:58
PROVIDERS: ATTEND Family Medicine
DX: Z12.11 Encounter for screening for malignant neoplasm of colon (principal); K57.30 Diverticulosis of large intestine without perforation or abscess without bleeding; F41.9 Anxiety disorder, unspecified; I10 Essential (primary) hypertension; E78.5 Hyperlipidemia, unspecified; E87.6 Hypokalemia; E03.9 Hypothyroidism, unspecified; G47.33 Obstructive sleep apnea (adult) (pediatric); Z86.010 Personal history of colon polyps; Z88.5 Allergy status to narcotic agent; Z91.048 Other nonmedicinal substance allergy status; Z79.899 Other long term (current) drug therapy; Z79.82 Long term (current) use of aspirin; Z79.890 Hormone replacement therapy; Z98.890 Other specified postprocedural states; Z90.49 Acquired absence of other specified parts of digestive tract; Z91.040 Latex allergy status
CPT/HCPCS: J2250; J2704; J3010; J7120

== ENCOUNTER 2024-05-17 06:35 | Emergency (ER) | payer BC ==
[2024-05-17 07:04] LABS: BASOPHILS ABSOLUTE AUTO 0.04 10^3/uL (0.00-0.50); BASOPHILS PERCENT AUTO 0.7 % (0-1); EOSINOPHILS PERCENT AUTO 3.5 % (0-6); HEMATOCRIT 44.3 % (42.0-52.0); HEMOGLOBIN 15.4 g/dL (14.0-18.0); IMMATURE GRAN ABSOLUTE AUTO 0.03 10^3/uL (0.00-0.49); IMMATURE GRAN PERCENT AUTO 0.5 % (0.0-4.9); LYMPHOCYTES ABSOLUTE AUTO 1.43 10^3/uL (0.60-5.00); LYMPHOCYTES PERCENT AUTO 25.3 % (24-44); MEAN CORPUSCULAR HGB CONC 34.8 g/dL (32.0-36.0); MEAN CORPUSCULAR VOLUME 86.2 fL (83.0-97.0); MONOCYTES ABSOLUTE AUTO 0.35 10^3/uL (0.00-1.50); MONOCYTES PERCENT AUTO 6.2 % (0-10); NEUTROPHILS ABSOLUTE AUTO 3.61 x10^3/uL (1.80-8.00); NEUTROPHILS PERCENT AUTO 63.8 % (41-71); PLATELET COUNT,PLT 170 10^3/uL (150-400); RED BLOOD CELL COUNT 5.14 x10^6/uL (4.50-6.00); WHITE BLOOD CELL COUNT,WBC 5.7 10^3/uL (4.0-11.0)
[2024-05-17 07:33] VITALS: BP 148/93; PULSE 62
[2024-05-17 07:34] LABS: PROTHROMBIN TIME 10.5 SEC (9.3-11.3); PTT,PARTIAL THROMBOPLSTIN TIME 24.1 SEC (20.0-30.0)
[2024-05-17 07:48] LABS: ALBUMIN 3.8 g/dL (3.4-5.0); BILIRUBIN TOTAL 0.4 mg/dL (0.0-1.0); CREATININE 1.3 mg/dL (0.7-1.3); EST CRCL DRUG DOSING (CG) 62.75 mL/min; MAGNESIUM 1.8 mg/dL (1.8-2.4); POTASSIUM,K 3.5 mEq/L (3.5-5.0); PROTEIN TOTAL,TP 6.8 g/dL (6.4-8.2)
== END 2024-05-17 08:45 | disposition home or self-care (01) ==
LOC: CC.ED 06:35
DX: I48.0 Paroxysmal atrial fibrillation (principal); E78.00 Pure hypercholesterolemia, unspecified; I10 Essential (primary) hypertension; K21.9 Gastro-esophageal reflux disease without esophagitis; E03.9 Hypothyroidism, unspecified; E66.9 Obesity, unspecified; Z68.32 Body mass index [BMI] 32.0-32.9, adult; Z90.49 Acquired absence of other specified parts of digestive tract; F17.210 Nicotine dependence, cigarettes, uncomplicated; Z79.82 Long term (current) use of aspirin; Z79.899 Other long term (current) drug therapy; Z91.040 Latex allergy status; Z91.048 Other nonmedicinal substance allergy status; Z88.5 Allergy status to narcotic agent
CPT/HCPCS: 36415; 71046; 80053; 83615; 83735; 84484; 85025; 85610; 85730; 93005; 93246; 99285